=== PATIENT | male | born 1955 | race Caucasian/White ===

== ENCOUNTER 2019-11-18 10:09 | Observation (INO) ==
[~2019-11-18 10:09] MED LIST: MORPHINE SULFATE 15 MG TABLET.SA PO PRN; ROPIVACAINE HCL/PF 100 MG, EPINEPHrine 0.2 MG, KETOROLAC TROMETHAMINE 30 MG in NORMAL S... IJ PRN; TRANEXAMIC ACID 1,000 MG in NORMAL SALINE 100 ML IV PRN; ceFAZolin SODIUM 1 GM VIAL IV PRN
[2019-11-18] MEDS ORDERED: BUPIVACAINE HCL/EPINEPHRINE/PF 30 ML VIAL IJ ONE (10:16)
[2019-11-18] MEDS ORDERED: MIDAZOLAM HCL/PF 5 MG/ML VIAL ONE (10:16)
[2019-11-18] MEDS ORDERED: PROPOFOL VIAL IV ONE (10:17)
[2019-11-18] MEDS ORDERED: ceFAZolin SODIUM 1 GM VIAL ONE (10:24)
[2019-11-18] MEDS ORDERED: ISOPROPYL ALCOHOL 480 APPL BTL MC ONE (10:24)
[2019-11-18] MEDS: RINGER'S SOLUTION,LACTATED 1,000 ML IV PRN ×2 (10:40→11:50)
--- NOTE | 2019-11-18 10:50 | ANES ---
Anesthesia Pre Procedure Eval Vitals/Labs: Last Vital Signs Temp 36.4 C 11/18/19 10:26 Pulse 72 11/18/19 10:26 Resp 16 11/18/19 10:26 BP 157/90 H 11/18/19 10:26 Pulse Ox 96 11/18/19 10:26 HOME MEDICATIONS ascorbic acid (vitamin C) 500 mg tablet 500 mg PO DAILY 05/22/18 [Last Taken 06/25/19] loratadine 10 mg tablet 10 mg PO DAILY 05/26/19 [Last Taken 06/25/19] omeprazole 20 mg tablet,delayed release 20 mg PO HS tab 05/26/19 [Last Taken 06/25/19] Allergies/Adverse Reactions: Allergies Allergy/AdvReac Type Severity Reaction Status Date / Time No Known Allergies Allergy Verified 11/18/19 10:22 - Planned Procedure Planned Procedure: Left Total Knee Arthroplasty Medication List Reviewed:: Yes Allergies Verified: Yes Medical History (Last Reviewed 11/18/19 @ 10:40 by Crow Jones CRNA) DJD (degenerative joint disease) of knee (Chronic) Onset Date: Unknown Acid reflux Anxiety Asthma Onset Date: Unknown pt reports "as a child" Cholelithiasis Onset Date: ~03/20/05 Finger fracture, left Onset Date: Unknown Closed-second finger left hand Ana M's deformity Onset Date: Unknown Hernia, inguinal Onset Date: Unknown Sinusitis, acute Onset Date: ~07/08/13 Tenosynovitis of foot and ankle Onset Date: ~06/20/12 Wears glasses Surgical History (Last Reviewed 11/18/19 @ 10:40 by Crow Jones CRNA) H/O adenoidectomy Onset Date: Unknown H/O hernia repair Onset Date: ~1977 Rt groin History of ankle surgery Onset Date: 05/27/13 irrigation and debridement- Left lateral ankle stitch [id number], Orla--left foot/ankle- 05-27-13 History of appendectomy Onset Date: ~1971 History of arthroscopic knee surgery right knee-1984 and 1985 History of colonoscopy Onset Date: ~01/11/09 Tinguely -scattered diverticulosis History of foot surgery Onset Date: ~03/05/13 Left foot-exc of post calc ana m deformity repair of Achilles tendon History of knee replacement procedure of right knee Onset Date: ~2003 [place] History of laparoscopic cholecyst[facility] Onset Date: Unknown left History of tonsillectomy Onset Date: Unknown S/P left knee arthroscopy Onset Date: ~06/26/19 Left knee arthroscopy with partial medial meniscectomy, removal foreign body left forearm Family History (Last Reviewed 11/18/19 @ 10:40 by Crow Jones CRNA) Mother Emphysema, unspecified COPD (chronic obstructive pulmonary disease) Father , age 66 Aortic aneurysm Brother Alive and well Brother H/O heart artery stent Sister Alive and well Son Alive and well Daughter Alive and well Daughter Alive and well - Family Anesthesia History Family History:: no untoward family reactions to anesthesia, no familial bleeding tendencies, no family history of clotting disorders, no family history of premature - Airway/Neck/Teeth Within Normal Limits:: Yes Teeth Condition: intact Denture Type: Full upper Neck Exam: full range of motion Mallampatti Score: 3 Thyromental (T-M) distance: > 6 cm Mandibulo Hyoid distance: > 3 cm - Respiratory Respiratory History: asthma Respiratory Physical: lungs clear Smoking Status: Never smoker Sleep Apnea currently treated: No Sleep Apnea by current assessment: No - Cardiovascular Cardiac History: hypertension Tolerate Activity: Fair Heart Sounds: S1 & S2, Regular - Anesthesia Assessment and Plan ASA Class: PS, II Anesthesia Type Plan: General ET, Block - adductor canal block for post op pain relief
[2019-11-18] MEDS ORDERED: fentaNYL CITRATE/PF 50 MCG/ML AMPUL ONE (10:54)
[2019-11-18] MEDS ORDERED: DEXAMETHASONE SODIUM PHOSP/PF 10 MG/ML VIAL ONE (10:55)
[2019-11-18] MEDS ORDERED: NEOSTIGMINE METHYLSULFATE 1 MG/ML VIAL ONE (10:55)
[2019-11-18] MEDS ORDERED: ONDANSETRON HCL/PF 2 MG/ML VIAL ONE (10:55)
[2019-11-18] MEDS ORDERED: GLYCOPYRROLATE 0.2 MG/ML VIAL ONE (10:55)
[2019-11-18] MEDS ORDERED: KETOROLAC TROMETHAMINE 30 MG/ML VIAL ONE (10:55)
[2019-11-18] MEDS ORDERED: ROCURONIUM BROMIDE 10 MG/ML VIAL ONE (10:55)
[2019-11-18] MEDS ORDERED: SUCCINYLCHOLINE CHLORIDE 20 MG/ML VIAL ONE (10:56)
[2019-11-18] MEDS ORDERED: ONDANSETRON HCL/PF 2 MG/ML VIAL IV PRN (13:06)
[2019-11-18] MEDS ORDERED: diphenhydrAMINE HCL 50 MG/ML VIAL IV PRN (13:06)
[2019-11-18] MEDS ORDERED: MAGNESIUM HYDROXIDE 30 ML UDC PO PRN (13:06)
[2019-11-18] MEDS ORDERED: ZOLPIDEM TARTRATE 5 MG TABLET PO PRN (13:06)
[2019-11-18] MEDS ORDERED: MAG HYDROX/ALUMINUM HYD/SIMETH 30 ML UDC PO PRN (13:06)
[2019-11-18] MEDS ORDERED: ACETAMINOPHEN 500 MG TABLET PO PRN (13:06)
--- NOTE | 2019-11-18 13:11 | OR ---
Operative Report - Dictated Report Narrative: Date: 11/18/2019 Preoperative diagnosis: Left knee degenerative joint disease. Postoperative diagnosis: Left knee degenerative joint disease. Procedure: Left total knee arthroplasty. Surgeon: Greyson Holley M.D. Manufacturing Plant Technician: Travis Spear PA-C (provided and essential set of skilled, educated hands that assisted with transfer, positioning, prepping, draping, manipulation, retraction, placement of jigs, injection, insertion of implants, irrigation, closure wounds, and dressings all of which could not be performed by the available surgical crew) Anesthesia: General with regional block and local periarticular joint injection. Complications: None Specimens: Bone. Estimated blood loss: Minimal. Tourniquet time: 90 Minutes at 325 millimeters of mercury. Retained implants: Depuy Attune size 7 left lugged cemented posterior stabilized femoral component. Size 6 fixed-bearing cemented tibial platform. 7 by 6 millimeter posterior stabilized cross-linked tibial insert. 41 millimeter medialized patella button. Indications: Mr. Gorman is a 64-year-old gentleman who has had longstanding left knee pain and arthrosis. This patient was followed in my clinic for period of time with significant complaints of left knee pain consistent with arthritic changes. He had failed conservative measures including, but not limited to, activity modification, passage of time, medications, and other conservative measures. Patient wished to proceed with surgical treatment. The risks, benefits, and alternatives were discussed in clinic. The risks of , blood clots, bleeding, infection, nerve/tendon blood vessel/ injury, malposition of components, intraoperative fracture, postoperative limited range of motion, persistent pain, failure of components, and need for additional procedures. Patient wished to proceed consent was obtained after answering all questions. Procedure: After marking the correct extremity on the floor, the patient was taken to the operating room. A timeout was performed. IV antibiotics consisting of Ancef were administered prior to the procedure. A regional followed by general anesthetic was induced by anesthesia, per my request, on the operative table with all bony prominences well-padded. Lepe catheter was placed, and a bump was placed under the operative side buttock. SCDs and MELISSA hose were utilized on the nonoperative leg. A well-padded tourniquet was applied to the operative thigh. The operative leg was then pre-scrubbed with alcohol, prepped, and draped in a standard sterile fashion. After exsanguinating the extremity with an Esmarch bandage, the tourniquet was inflated. After marking out the anterior knee for standard incision centered over the patella, the skin was incised and dissected down to the joint retinaculum. The joint retinaculum was marked out as well as the horizontal axis of the patella, and a standard medial parapatellar arthrotomy was then made. The most proximal aspect of the quadriceps tendon and the patella tendon insertion were protected from release. A partial synovectomy was performed as well as a resection of the infrapatellar fat pad. The distal femoral fat pad proximal to the trochlea was also resected using cautery. The soft tissues were elevated off the medial aspect of the proximal tibia using a Hernandez elevator ensuring that we did not transect the medial collateral ligament. Upon initial evaluation range of motion was approximately 5 degrees recurvatum to 125 degrees of flexion. There were signs of advanced arthrosis in the medial and patellofemoral and to a lesser degree lateral joint spaces. There were large marginal osteophytes which were removed with a rongeur. The knee was hyperflexed and the patella was tucked laterally. Protecting the surrounding soft tissues with Homans, an entry drill was placed down the femoral canal using Whitesides line for guidance into the entry point. The intramedullary femoral alignment gustavo was utilized in order to cut the distal femur in 5 degrees of valgus resecting 10 millimeters of bone. Next the distal femur was sized to a size 7. A posterior referencing guide was utilized to place the distal femoral cutting block in 3 degrees of external rotation. This was pinned into place. The rotation was confirmed both visually and based on anatomic landmarks. The 4 in 1 cutting jig of the appropriate size was utilized in order to make all bony cuts. The ciera wing was used to ensure no notching. Retractors were utilized in order to protect surrounding soft tissues. This cut did not result in any excessive notching. We then cut the box centered over the distal femur. This allowed for resection of the anterior and posterior cruciate ligaments. I then turned my attention to the preparation of the tibia. Using an extra medullary tibial alignment gustavo, 3 millimeters of bone was resected off the medial articular surface. This was made perpendicular to the mechanical axis of the joint with the alignment gustavo centered over the ankle mortise. The alignment gustavo was checked and was noted to be parallel to the mechanical axis, centered over the medial one third of the tibial tubercle, paralleling the anterior surface of the tibia. We then turned our attention to the remaining meniscus and soft tissues. These were removed while protecting the surrounding ligaments and soft tissues. The marginal osteophytes off the anterior, posterior, medial, lateral aspects of the femur and tibia were shayy joana. The tibia was sized out to a size 6. Next the tibia was drilled and punched in an externally rotated position. Next the trial femur and a series of tibial inserts were utilized in order to allow for full extension and maximal flexion. It was found that a 6 millimeter insert gave the best range of motion and stability at multiple flexion points as well as at full extension there was less than 2 mm of gapping both medially and laterally. There is minimal anterior translation with the knee at 90 degrees of flexion and no signs of being able to dislocate the knee. The patella was then prepared. The initial thickness was 26 millimeters. This was reamed down to 15 millimeters parallel to the anterior surface of the patella. It was sized out to a size 41 medialized patella button. This was then drilled and trialed. Without any medial restraint the patella tracked appropriately and did not sublux or dislocate. At this point, it was felt these were the appropriate sized implants, and all trials were removed. The standard periarticular joint injection consisting of ropivacaine, Toradol, and epinephrine were injected into the periarticular joint tissues. The bony surfaces were thoroughly irrigated with a pulsatile-suction saline irrigation device. A bone plug from the prior resected anterior chamfer cut was placed into the drill hole at the distal femur. The bony surfaces were then dried in preparation for placement of the implants. The cement was vacuum mixed per the blade aligner's instructions. The cement was placed on the dry bony surfaces and posterior aspect of the implants. The implants were impacted into place, removing all extruded cement. At this point anesthesia administered tranexamic acid per protocol intravenously. The knee was placed in extension with axial loading with the trial insert while the cement cured. Once the cement cured, all remaining extruded cement was removed. The knee was placed through a range of motion with the trial insert to ensure appropriate range of motion and stability. Final range of motion was approximately 0 to 125 degrees. The knee was again thoroughly irrigated with pulsatile saline lavage. The final polyethylene insert was then impacted into place ensuring no retained soft tissues. The remaining periarticular joint injection was injected. A medium Hemovac drain was placed exiting superior laterally. The knee was then placed over a triangle and the arthrotomy was closed with interrupted #1 Vicryl after thoroughly irrigating the joint. The deep and subcutaneous tissues were closed with interrupted 0 and 3-0 Vicryl respectively. Skin was closed with a running subcutaneous 3-0 Monocryl and Prineo Dermabond dressing. 4 x 4's, Sof-Rol, and a full leg Compa wrap were applied. All sponge, needle, blade, and instrument counts were correct prior to closing the wounds. Postoperative condition: The patient was awoken and transferred to the postanesthesia care unit in stable condition. Plan is to be admitted to the inpatient medical/surgical floor postoperatively for 24 hours of IV antibiotics, physical therapy, occupational therapy, and medical comanagement. Patient will be weightbearing as tolerated with range of motion as tolerated. DVT prophylaxis will be with SCDs, MELISSA hose, and pharmacological anticoagulation. Anticipated hospital stay is approximately 1-3 days.
--- NOTE | 2019-11-18 13:22 | ANES ---
Post Anesthesia Discharge - Transfer of Care Transfer of Care handoff given to nurse: Yes - Discharge from PACU Discharge from PACU when meets criteria: Yes - Comfortable in PACU.
--- NOTE | 2019-11-18 13:26 | ANES ---
Anesthesia Procedure Note Procedure Note: ANESTHESIA PROCEDURE NOTE Date of Procedure: [11/18/2019 Time of procedure: 11:05 AM. Performed by: HARJIT Trivedi CRNA, MSN Glass Blowing Lathe Operator: Temitope Montesinos RN. Preprocedure diagnosis: Post total knee arthroplasty pain. Post procedure diagnosis: Same. Procedure: Left adductor Canal Block. Indications: Post left total knee arthroplasty pain relief. Findings: See below. Details of the procedure: The patient was brought to OR #2 and placed in supine position. The patient's left femoral area to the knee was prepped with chlorhexidine and using ultrasound guidance the left femoral artery and nerve was identified and then followed to the level of the adductor canal. Lidocaine 1% was infiltrated to the skin of the intended injection site. Under ultrasound guidance the saphenous nerve was approached with visualization of a 2 inch shielded block needle. Once saphenous nerve was identified with proximity to the needle tip, the saphenous nerve was surrounded with 25 mL bupivacaine 0.5% with 1-200,000 epinephrine. Please see radiology/ultrasound report for details and retained images of the procedure. EBL: 0 Fluids: N/A. Specimen: N/A. Post procedure condition: The patient tolerated the procedure well. No complications were noted. Thank you for this consultation. Crow Jones CRNA, ARNP, MSN
[2019-11-18] MEDS: KETOROLAC TROMETHAMINE 15 MG/ML VIAL IV SCH ×2 (14:13→20:03)
[2019-11-18] MEDS: DEXTROSE 5%-LACTATED RINGERS 1,000 ML IV PRN ×2 (14:25→23:46)
[2019-11-18] MEDS: MORPHINE SULFATE 2 MG/ML DISP.SYRIN IV PRN ×2 (14:26→15:01)
[2019-11-18] MEDS: ceFAZolin SODIUM 1 GM in DEXTROSE 5 % IN WATER 100 ML IV SCH ×4 (14:29→20:05)
[2019-11-18] MEDS: oxyCODONE HCL/ACETAMINOPHEN 1 TAB TABLET PO PRN ×2 (15:10→19:58)
--- NOTE | 2019-11-18 15:42 | ANES ---
Post Anesthesia Assessment - Vital Signs Vitals: Last Vital Signs Temp 37.1 C 11/18/19 14:45 Pulse 93 11/18/19 14:50 Resp 12 11/18/19 14:50 BP 140/87 11/18/19 14:50 Pulse Ox 93 11/18/19 14:50 Airway Patency: Normal - Mental Status Level Of Consciousness: Awake, Alert, Appropriate - Pain Level Pain Score: 8 - N/V Assessment Nausea/Vomiting Presence: None Dehydration:: No
[2019-11-18] MEDS: MORPHINE SULFATE 15 MG TABLET.SA PO SCH (20:12)
[2019-11-18] MEDS ORDERED: PANTOPRAZOLE SODIUM 20 MG TABLET.DR PO SCH (21:00)
[2019-11-18] MEDS ORDERED: SENNOSIDES/DOCUSATE SODIUM 1 TAB TABLET PO SCH (21:00)
[2019-11-19] MEDS: oxyCODONE HCL/ACETAMINOPHEN 1 TAB TABLET PO PRN ×2 (00:05→04:14)
[2019-11-19] MEDS: ceFAZolin SODIUM 1 GM in DEXTROSE 5 % IN WATER 100 ML IV SCH ×2 (02:46)
[2019-11-19] MEDS: KETOROLAC TROMETHAMINE 15 MG/ML VIAL IV SCH ×2 (02:47→08:01)
[2019-11-19 06:29] LABS: Hematocrit 43.5 % (42.0-52.0); Hemoglobin 14.5 gm/dL (13.5-18.0); Mean Cell Volume 92.9 fl (78-100); Mean Corpuscular Hgb Conc 33.3 g/dl (32-36); Mean Platelet Volume 10.8 fl (8-11.3); Platelet Count 178 K/mm3 (150-450); Red Blood Count 4.68 M/mm3 (4.7-6.0); White Blood Count 16.5 K/mm3 (4.0-10.5)
[2019-11-19 06:37] LABS: Anion Gap 14.6 mmol/L (6.8-13.8); BUN/Creatinine Ratio 9.3 (9.0-21.6); Calcium * 8.8 mg/dL (7.9-10.9); Carbon Dioxide 26.9 mmol/L (24-32.6); Estimated Creat Clear -69.8; Potassium 4.5 mmol/L (3.4-4.6)
[2019-11-19] MEDS: MORPHINE SULFATE 15 MG TABLET.SA PO SCH (08:31)
[2019-11-19] MEDS ORDERED: ASCORBIC ACID 500 MG TABLET PO SCH (09:00)
[2019-11-19] MEDS ORDERED: LORATADINE 10 MG TABLET PO SCH (09:00)
[2019-11-19] MEDS ORDERED: BENZOCAINE/MENTHOL 16 EACH BOX MM PRN (11:01)
--- NOTE | 2019-11-19 11:17 | DS ---
(1) GERD (gastroesophageal reflux disease) Problem: Chronic (2) S/P total knee arthroplasty Problem: Acute Qualifiers: Laterality: left Qualified Code(s): Z96.652 - Presence of left artificial knee joint Date of Discharge:: 11/19/19 Hospital Course: Mr. Gorman was admitted to the floor after undergoing left total knee arthroplasty. Tolerated this well. Was admitted to the floor postoperatively for 24 hours of IV antibiotics, pain control, medical comanagement, and occupational and physical therapy. OT and PT were consulted to assist with activities of daily living and ambulation. Was made weightbearing as tolerated with range of motion as tolerated. Pain was initially controlled with IV regimen. This was transitioned to oral once tolerating a by mouth intake. Was resumed on home diet and medications. Had a Lepe catheter inserted and the operating room which was discontinued on postoperative day 1. A drain was placed intraoperatively into the knee which was discontinued on postoperative day 1. Lovenox SCD and MELISSA hose were utilized for DVT prophylaxis. Vital signs remained stable to the hospital course. Labs were obtained which showed a final hemoglobin of 14.5 grams. BMP was reviewed and was stable. Physical examination throughout the hospital course showed an extremity that had sensation that was intact to light touch, palpable pulses, a benign wound, motor intact to the toes, ankle, and knee. Knee range of motion was approximately 5 degrees to 60 degrees. Once an oral pain regimen was tolerated and physical therapy goals were met, it was felt that they were stable for discharge to home. Instructions: Continue with weightbearing as tolerated and range of motion as tolerated. It is okay to shower and get the wound wet as long as there is no drainage from the wound. Do not bathe or soak the wound. If there is any drainage from the wound keep the wound clean and dry and cover with dry gauze and tape. Change every 2- 3 days as needed if there is any drainage. Cover wound while showering if there is any drainage. Continue with physical therapy. Resume home diet. Report any fever over 101.5 Fahrenheit, uncontrolled pain, increased drainage, foul odor of drainage, new or increased calf pain or shortness of breath, or any other significant complaints. A 325mg daily aspirin will be started after finishing anticoagulation if not allergic. Continue with MELISSA hose on the operative extremity until instructed otherwise. No driving until instructed otherwise. Follow up in approximately 2-3 weeks. Procedures Performed: see notes below List Procedures: Left total knee arthroplasty Results and Findings: Lab Pending Results 11/19/19 06:20: WBC 16.5 H, RBC 4.68 L, Hgb 14.5, Hct 43.5, MCV 92.9, MCH 31.0, MCHC 33.3, RDW 13.0, Plt Count 178, MPV 10.8 11/19/19 06:20: Sodium 141, Plasma Sodium 142, Potassium 4.5, Chloride 104, Carbon Dioxide 26.9, Anion Gap 14.6 H, BUN 12, Creatinine 1.29, Est GFR (Non-Af Amer) 59 L, BUN/Creatinine Ratio 9.3, Random Glucose 138 H, Calcium 8.8 Disposition: Home self-care Condition: Good Discharge Activity: Activity as tolerated, Weight bearing Discharge Diet: General/regular food Referrals: Greyson Holley MD [Staff Physician] - 12/08/19 10:30 am Problem Oriented Discharge Instructions to Patient/Family: Total Knee Replacement, Care After, [id number] Additional Patient Instructions (free text): [facility] Physical Therapy appointment SaturdayNovember 19 at 12:30p.m. Follow up in the Orthopedic office with Dr. Holley on SaturdayDecember 07at 10:30a.m. Prescriptions (Any new or edited meds): Enoxaparin Sodium [Lovenox] 40 mg SC Q24H #7 disp.syrin Transmission Status: Pending to [place], [place] Morphine Sulfate [Ms Contin] 15 mg PO Q12H #10 tablet.sa Transmission Status: Received by [place], [place] oxyCODONE HCL/ACETAMINOPHEN [Percocet 5 MG/325 MG] 2 tab PO Q4H PRN #60 tab PRN Reason: Moderate Pain (Pain Scale 4-6) Transmission Status: Received by [place], [place] Sennosides/Docusate Sodium [Senokot-S] 2 tab PO HS #60 tab Transmission Status: Pending to [place], [place] Complete Home Medications List: Complete Home Medication List: ascorbic acid (vitamin C) 500 mg tablet 500 mg PO DAILY 05/22/18 loratadine 10 mg tablet 10 mg PO DAILY 05/26/19 omeprazole 20 mg tablet,delayed release 20 mg PO HS tab 05/26/19 Enoxaparin Sodium [Lovenox] 40 mg SC Q24H #7 disp.syrin 11/19/19 Morphine Sulfate [Ms Contin] 15 mg PO Q12H #10 tablet.sa 11/19/19 Sennosides/Docusate Sodium [Senokot-S] 2 tab PO HS #60 tab 11/19/19 oxyCODONE HCL/ACETAMINOPHEN [Percocet 5 MG/325 MG] 2 tab PO Q4H PRN #60 tab 11/19/19 Amb Orders for Discharge: PT Evaluation and Treatment* Facility: [facility], Location: Rehabilitation Services
[2019-11-19] MEDS ORDERED: ENOXAPARIN SODIUM 40 MG/0.4 ML SYRG SC SCH (12:06)
[2019-11-19 13:20] VITALS: BP 114/68
== END 2019-11-19 13:45 | disposition home or self-care (01) ==
LOC: SUR 10:09 → MS 10:09
PROVIDERS: ADMIT Orthopaedic Surgery; ATTEND Orthopaedic Surgery
DX: Z96.652 Presence of left artificial knee joint; M17.12 Unilateral primary osteoarthritis, left knee; K21.9 Gastro-esophageal reflux disease without esophagitis
CPT/HCPCS: 36415; 73560; 80048; 85027; 97110; 97116; 97161; G0378; J2405